=== PATIENT | female | born 1990 | race Caucasian/White ===

== ENCOUNTER 2024-05-11 14:25 | Inpatient (IN) | payer OTHER, SELFPAY ==
[2024-05-11] VITALS (92 sets, daily range): BP systolic 124–147; BP diastolic 56–92; PULSE 62–100; RESP 18; TEMP 36.6–36.9; O2SAT 85–100; BMI 48.9
[2024-05-11 15:06] LABS: ROM Kit Lot # 57804194; Swb Mxed in Solvent 1 min? Yes
[2024-05-11 15:07] LABS: ROM Swab Mixed By: OSEGA; Rupture of Fetal Membranes Positive (Negative)
--- NOTE | 2024-05-11 15:15 | XR_ITS ---
Examination: age Limited TECHNIQUE: Transabdominal limited sonographic images pelvis Exam date and time: May 11, 2024 1544 hours INDICATIONS: Ruptured membranes today, unknown presentation FINDINGS: Viable intrauterine gestation cephalic presentation spine maternal right Cardiac motion 171 bpm IMPRESSION: Viable intrauterine gestation cephalic presentation
[2024-05-11 18:03] LABS: Basophils % (Auto) 0 % (0-2.5); Eosinophils # (Auto) 0.1 Thou/mm3 (0.0-0.5); Eosinophils % (Auto) 1 % (0-10); Hematocrit 33.4 % (36.0-46.0); Immature Granulocytes % (Auto) 0 % (0-0); Immature Granulocytes Auto 0.04 Thou/mm3 (0.00-0.00); Lymphocytes # (Auto) 1.5 Thou/mm3 (1.0-4.8); Lymphocytes % (Auto) 16 % (10-50); Mean Corpuscular HGB Conc 32.9 g/dl (31.0-37.0); Mean Corpuscular Hemoglobin 27.9 pg (25.0-35.0); Mean Corpuscular Volume 85 fL (80-100); Monocytes # (Auto) 0.5 Thou/mm3 (0.0-0.8); Monocytes % (Auto) 6 % (0-12); Neutrophils # (Auto) 7.4 Thou/mm3 (1.8-7.7); Neutrophils % (Auto) 77 % (37-80); Nucleated Red Blood Cell % 0 /100 WBC (0); Platelet Count 229 Thou/mm3 (140-440); RDW Standard Deviation 47.8 fL (36.4-46.3); Red Blood Count 3.94 Miln/mm3 (4.00-5.20); White Blood Count 9.6 Thou/mm3 (3.6-11.0)
--- NOTE | 2024-05-11 18:11 | PD.LDHP ---
Documentation for date of: 05/11/24 OB Labor/Induct. HPI History of Present Illness Chief complaint: 33 y/o 37w 6d presents for SROM and in early labor : 1 Para: 0 Term pregnancies: 0 pregnancies: 0 Living children: 0 History of Abortions: Spontaneous and Elective: 0 History of Vaginal deliveries: 0 History of sections: No History of : No Date of last menstrual period: 08/20/23 [place]: 05/26/24 Gestational Age (weeks): 37 Gestational Age (days): 6 Gestational age based on last menstrual period: 37 History of present illness: 33 y/o 37w 6d presents for SROM and in early labor /-3 vertex ruptured membranes. GBS is neg. Pt's has been complicated by BMI of 47 and anemia. EFW 3400g History of Present Dating criteria: LMP confirmed by 2nd trimester US Adequate Care: Yes Ultrasounds: normal 1st trimester US and normal mid trimester US Obstetrical complications: other (Morbid Obesity BMI 47) Labs Maternal Blood Type: B Pos Labs: Positive: Rubella Titre, Negative: RPR, Hepatitis B, HIV, Chlamydia, Gonorrhea and Group Beta Strep and Unknown: Herpes Type 1, Herpes Type 2 and Covid-19 Review of Systems Review of Systems Systems Reviewed: All systems reviewed, normal except as documented Past Medical History Surgical History SURGICAL: Negative Section Meds Home Medications and Allergies Home Medications ?Medication ?Instructions ?Recorded ?Confirmed ?Type ferrous sulfate 15 mg iron (75 15 mg PO DAILY 05/11/24 05/11/24 History mg)/mL oral drops [id number]-[id number]-FA 1 mg 2 tab PO DAILY 05/11/24 05/11/24 History tablet Allergies Allergy/AdvReac Type Severity Reaction Status Date / Time povidone-iodine Allergy Mild Rash Verified 05/11/24 17:34 [From Betadine] honey Allergy Anaphylaxis Verified 05/11/24 17:55 venom-honey bee Allergy Anaphylaxis Verified 05/11/24 17:55 venom-wasp Allergy Anaphylaxis Verified 05/11/24 17:55 OB Exam Physical Exam Vital signs: Temp Pulse Resp BP Pulse Ox 97.9 F 82 18 132/78 H 100 05/11/24 16:42 05/11/24 16:42 05/11/24 16:42 05/11/24 16:42 05/11/24 18:07 Constitutional Constitutional: no acute distress Routine HEENT Exam Head: Present normocephalic and atraumatic Eye: Present EOMI, PERRL and normal accommodation ENT: Present mucous membranes moist Routine Neck Exam Neck: Present supple, full ROM and trachea midline Routine Respiratory Exam Respiratory: Absent respiratory distress Routine Cardiovascular Exam Cardiovascular: Present RRR Routine Abdominal Exam Abdominal: Present soft and normoactive bowel sounds Comments: Gravid Uterus EFW 3400g Routine Exam External: Present normal urethra appearance; Absent lesions Detailed Labor and Delivery Exam Dilation (cm): 3 Effacement (%): 50 Cervix position: posterior station: -3 Consistency: soft Presentation: Vertex Membranes: ruptured Amniotic fluid: clear Baseline heart rate: 130 monitor accelerations: 15x15 monitor decelerations: None detention variability: Moderate (11-25) Contraction frequency (min): 4-6 Routine Extremities Exam Extremities: Present full ROM Routine Back/Spine/Pelvis Exam Back/Spine: Present full ROM Routine Skin Exam Skin: Present intact, dry and warm Routine Neurological Exam Neurological: Present alert, oriented X3 and CN II-XII intact Routine Psychiatric Exam Psychiatric: Present normal affect and normal thought process OB Results Labs 05/11/24 16:41 Labs: Short CBC 05/11/24 Range/Units 16:41 WBC 9.6 (3.6-11.0) Thou/mm3 Hgb 11.0 L (12.0-16.0) g/dL Hct 33.4 L (36.0-46.0) % Plt Count 229 (140-440) Thou/mm3 OB Assessment & Plan Assessment and Plan (1) Premature rupture of membranes: Status: Acute (2) 37 weeks gestation of : Status: Acute (3) Normal labor: Status: Acute (4) Morbid obesity with BMI of 45.0-49.9, adult: Status: Acute (5) Anemia affecting in third trimester: Status: Acute Additional Plan Induction method: none Plan: augmentation, anticipate NVD and consult MD merritt Additional Plan Comment: Routine admit orders Consult anesthesia for an epidural Updated myles (1) Premature rupture of membranes Qualifiers: PROM onset of labor timing: unspecified duration between rupture of membranes and onset of labor PROM gestational age: full term Qualified Code(s): O42.92 - Full-term premature rupture of membranes, unspecified as to length of time between rupture and onset of labor
[2024-05-11 18:14] LABS: Amphetamine/Metham Scrn,Ur OB Negative (Negative); Benzoylecgonine Screen, Ur OB Negative (Negative); Opiate Screen,Urine OB Negative (Negative); THC Screen,Urine OB Negative (Negative)
[2024-05-11 18:36] LABS: Rubella, IgG Antibody Reactive (Immune)
[2024-05-11 18:45] LABS: Syphilis Nonreactive (Nonreactive)
--- NOTE | 2024-05-11 18:49 | XR_ITS ---
Examination: age Limited Technique: Limited transabdominal sonographic images pelvis Exam date and time: May 11, 2024 1904 hrs. Indications: Labor evaluation, unknown estimated weight Findings: Viable intrauterine gestation cephalic presentation Estimated weight 3314 g Cardiac motion 150 bpm Amniotic fluid index 2.6 cm Impression: Viable intrauterine gestation cephalic presentation
[2024-05-11] MEDS: MISOPROSTOL 50 mCg TABLET PO (21:46)
--- NOTE | 2024-05-11 22:32 | PC.NURSE ---
Cytotec order discontinued due to only 1 dose ordered.
[2024-05-11] MEDS: RINGERS LACTATED 1000 ML 1,000 ML 999 ML IV (22:55)
[2024-05-12] VITALS (380 sets, daily range): BP systolic 81–148; BP diastolic 49–85; PULSE 61–109; RESP 17–18; TEMP 36.9–37.4; O2SAT 77–100
[2024-05-12] MEDS: RINGERS LACTATED 1000 ML 1,000 ML 999 ML IV (00:11)
[2024-05-12] MEDS: RINGERS LACTATED 1000 ML 1,000 ML 100 ML IV ×4 (01:27→14:21)
--- NOTE | 2024-05-12 06:49 | PD.LDPN ---
Documentation for date of: 05/12/24 OB Labor Progress Note Pain Control Pain control: epidural Comments: Pt reports no comfort pain 01/16 Pelvic Exam Dilation (cm): 4 Effacement (%): 70 station: -2 Amniotic membrane status: Ruptured Contractions Monitor mode: External Contraction frequency: 2-3 Contraction duration: 40-50 Contraction phase: Contraction Contraction intensity: Strong Status status: Category l Assessment and Plan Assessment: other (Latent labor) Plan OB labor note: begin Pitocin augmentation Comments: Pt is very uncomfortable even with the epidural, will call anesthesia to reevaluate epidural placement Pt has made some cervical change Will start pitocin per protocol Anticipate
[2024-05-12] MEDS: OXYTOCIN in NS 30 units 30 UNIT/500 ML BAG IV (10:02)
[2024-05-12] MEDS: Ampicillin Inj 2,000 MG in SODIUM CHLORIDE 0.9% (P) 100 ML 200 MG IV (14:46)
[2024-05-12] MEDS: fentaNYL CIT INJ 50 mCg/ML AMP 2ML 100 MCG IV (15:49)
[2024-05-12] MEDS: ONDANSETRON INJ 2 MG/ML INJ 2 ML 4 MG (19:49)
--- NOTE | 2024-05-12 20:06 | PD.LDPN ---
Documentation for date of: 05/12/24 OB Labor Progress Note Pain Control Pain control: epidural Pelvic Exam Dilation (cm): 10 Effacement (%): 100 station: +1 Amniotic membrane status: Ruptured Contractions Monitor mode: External Contraction frequency: 2-5 Contraction duration: 40-60 Contraction phase: Contraction Contraction intensity: Strong Status status: Category l Assessment and Plan Pitocin rate (mU/min): 2 Assessment: other (2nd stage ) Plan OB labor note: continuous present management Comments: Test pushed with pt. Pt was able to move the head slowly but surely RN will push with pt CNM on unit awaiting for delivery Anticipate Dr. Khoury updated
[2024-05-12] MEDS: OXYTOCIN in NS 20 units 20 UNIT/1,000 ML BAG 125 UNIT IV (21:02)
[2024-05-12] MEDS: OXYTOCIN INJ 10 UNIT/ML VIAL IM (21:03)
[2024-05-12] MEDS: TRANEXAMIC ACID 1,000 MG IVPB 1,000 MG/100 ML BAG 200 MG IV ×2 (21:07→22:30)
--- NOTE | 2024-05-12 21:30 | OBDSUM_ITS ---
Data (Abbott) Data Hx Section: No Maternal Blood Type: B Pos Rubella Titre: Positive RPR: Non-reactive Labs: Negative: RPR, Hepatitis B, HIV, Chlamydia, Gonorrhea and Group Beta Strep and Unknown: Herpes Type 1 and Herpes Type 2 : 1 Para: 0 Term: 0 : 0 Livin : 0 Delivery Data (Abbott) Labor Data Stimulated/Augmented: Yes Induction: No Method: Oxytocin ROM Date: 05/11/24 ROM Time: 12:30 Rupture Type: SROM Amniotic Fluid: Clear Delivery Data EDC: 05/26/24 EDC calculated by:: LMP/early US confirmation Labor Onset Stage 1 Date: 05/11/24 Labor Onset Stage 1 Time: 12:30 Labor Onset Stage 2 Date: 05/12/24 Labor Onset Stage 2 Time: 19:32 Delivery Date: 05/12/24 Delivery Time: 20:47 Gestational age (weeks): 38 Gestational age (days): 1 Placenta Delivery Date: 05/12/24 Placenta Delivery Time: 21:02 Delivered by: Wanda Santos Delivery nurse: Zaynab Coyle Social Service Manager at delivery: No Support person(s) at delivery: FOB Other staff at delivery: Nursery Nurse Other staff at delivery: Ailyn Bardales Delivery Method Delivery: Vaginal Delivery Type: Spontaneous Presentation: Vertex Position: OA Anesthesia Type Primary Anesthesia: Epidural Delivery Room Medications Intrapartum Medications: Antibiotics Other Intrapartum Medications: No Post Delivery Medications: Antibiotics Post Delivery Medications N/A: Yes Placenta Placenta Delivery: Spontaneous Placenta Cultures Obtained: No Placenta Sent for Examination: No Cord Sample: Cord Blood Obtained Episiotomy Episiotomy: None Lacerations #1: Vaginal: 1st degree Perineal repair Sutures used for repair: 3.0 Vicryl (CT) EBL Estimated blood loss (ml): 300 Umbilical Cord Umbilical Vessels: 3 Nuchal Cord: x2 Body Cord: None Additional Procedures Patient pushed for an hour and had an of a viable male infant. 's head delivered with nuchal cord x 2 easily reduced. 's anterior shoulder delivered with gentle downward traction subsequent deliver the posterior shoulder and the body without complications. placed on mother's abdomen. Vigorous cry upon delivery. Cord was clamped. Cut by FOB. Cord blood obtained. Three-vessel cord noted. Placenta expelled spontaneously and intact. Patient sustained a small laceration within the vagina. Repaired using a 3-[address] Perineum intact. Excellent hemostasis achieved after vigorous fundal massage and removal of clots from the posterior fornix. EBL is 300. Sponge and needle count correct. Mother and baby stable, skin to skin and bonding in LDR. Data ([facility]bbott) Data Gender: Male Identification Band Number: [id number] Infant Weight Grams: 3275 1 Minute Total: 9 5 Minute Total: 9
[2024-05-12] MEDS: IBUPROFEN TAB 400 MG TABLET 800 MG PO (21:58)
[2024-05-13 00:30] VITALS: BP 122/76; PULSE 80; RESP 18; TEMP 36.8; O2SAT 98
[2024-05-13] MEDS: Ampicillin Inj 2,000 MG in SODIUM CHLORIDE 0.9% (P) 100 ML 200 MG IV ×3 (00:32→11:49)
[2024-05-13 03:54] LABS: Basophils % (Auto) 0 % (0-2.5); Eosinophils # (Auto) 0.1 Thou/mm3 (0.0-0.5); Eosinophils % (Auto) 0 % (0-10); Hematocrit 31.4 % (36.0-46.0); Hemoglobin 10.3 g/dL (12.0-16.0); Immature Granulocytes % (Auto) 0 % (0-0); Immature Granulocytes Auto 0.06 Thou/mm3 (0.00-0.00); Lymphocytes % (Auto) 15 % (10-50); Mean Corpuscular HGB Conc 32.8 g/dl (31.0-37.0); Mean Corpuscular Hemoglobin 28.1 pg (25.0-35.0); Mean Corpuscular Volume 86 fL (80-100); Monocytes # (Auto) 1.1 Thou/mm3 (0.0-0.8); Monocytes % (Auto) 8 % (0-12); Neutrophils # (Auto) 10.5 Thou/mm3 (1.8-7.7); Neutrophils % (Auto) 77 % (37-80); Nucleated Red Blood Cell % 0 /100 WBC (0); Platelet Count 203 Thou/mm3 (140-440); Red Blood Count 3.67 Miln/mm3 (4.00-5.20); White Blood Count 13.7 Thou/mm3 (3.6-11.0)
[2024-05-13 04:54] VITALS: BP 97/62; PULSE 84; RESP 18; TEMP 36.7; O2SAT 98
[2024-05-13 08:00] VITALS: BP 109/69; PULSE 92; RESP 17; TEMP 36.3; O2SAT 98
--- NOTE | 2024-05-13 08:22 | PD.LDDS ---
DS: Providers Provider Date of admission: 05/11/24 15:13 Primary care physician: Physician No Primary/Family Admitting Provider: Delio Robison MD Attending Provider on Admission: Wanda Santos CNM Attending Provider on DC: Wanda Santos CNM Discharging Provider: Wanda Santos CNM Anticipated date of discharge: 05/13/24 DS: Diagnosis Discharge Diagnosis (1) Normal spontaneous vaginal delivery: Status: Acute (2) Encounter for care of lactating mother: Status: Acute (3) Anemia affecting in third trimester: Status: Acute (4) Morbid obesity with BMI of 45.0-49.9, adult: Status: Acute (5) Normal labor: Status: Acute (6) 37 weeks gestation of : Status: Acute (7) Premature rupture of membranes: Status: Acute Problem List Completed Was Problem List Reviewed/Reconciled?: Yes Summary/Hosp Course Brief History: 33 y/o 37w 6d presents for SROM and in early labor /-3 vertex ruptured membranes. GBS is neg. Pt's has been complicated by BMI of 47 and anemia. EFW 3400g. 05/12/24: Patient pushed for an hour and had an of a viable male . 's head delivered with nuchal cord x 2 easily reduced. 's anterior shoulder delivered with gentle downward traction subsequent deliver the posterior shoulder and the body without complications. placed on mother's abdomen. Vigorous cry upon delivery. Cord was clamped. Cut by FOB. Cord blood obtained. Three-vessel cord noted. Placenta expelled spontaneously and intact. Patient sustained a small laceration within the vagina. Repaired using a 3-[address] Perineum intact. Excellent hemostasis achieved after vigorous fundal massage and removal of clots from the posterior fornix. EBL is 300. Sponge and needle count correct. Mother and baby stable, skin to skin and bonding in LDR. 05/13/24: day 1. Patient is stable and afebrile and doing well and . Denies dizziness shortness of breath. Patient has been voiding with no problems ambulating to the bathroom. Passing gas. Uterus is nontender fundus firm minimal lochia. Discharge instructions given patient to follow-up with Wanda Santos CNM in 3 weeks Peripartum Data Delivery Method: Normal Vaginal Delivery Episiotomy Description: None Laceration Description: yes and see Delivery Summary complications: none 1: Gender: Male Disposition of : home Status at Discharge Cognitive/behavioral status at discharge: Alert and oriented x 3 Functional status at discharge: independent ambulation Overall status at discharge: patient is progressing back to baseline Time Spent with Patient Time attestation: Total time spent providing and/or coordinating discharge services: Time spent: Greater than 30 minutes Exam Vital Signs Temp Pulse Resp BP Pulse Ox 98.4 F 74 18 120/66 100 05/12/24 11:30 05/12/24 20:24 05/12/24 11:30 05/12/24 20:24 05/12/24 21:15 Constitutional Constitutional: no acute distress Routine HEENT Exam Head: Present normocephalic and atraumatic Eye: Present EOMI, PERRL and normal accommodation ENT: Present mucous membranes moist Routine Neck Exam Neck: Present supple, full ROM and trachea midline Routine Respiratory Exam Respiratory: Present chest non-tender, lungs clear, normal breath sounds and no resp distress Routine Cardiovascular Exam Cardiovascular: Present RRR Routine Abdominal Exam Abdominal: Present soft and normoactive bowel sounds; Absent tenderness or distended Comments: Uterus nontender Fundus firm Routine Exam Patient deferred: external exam Routine Extremities Exam Extremities: Present full ROM, pulses intact and normal capillary refill; Absent calf tenderness or tenderness Routine Back/Spine/Pelvis Exam Back/Spine: Present full ROM Routine Skin Exam Skin: Present intact, dry and warm Routine Neurological Exam Neurological: Present alert, oriented X3 and CN II-XII intact Routine Psychiatric Exam Psychiatric: Present normal affect and normal thought process Discharge Plan Plan Patient Disposition: HOME (Self Care) Patient condition on transfer: Stable Prescriptions/Referrals Prescriptions/Med Rec: New ibuprofen 800 mg tablet 800 mg PO Q6H MDD 4 PRN (Reason: pain) Qty: 120 0RF docusate sodium [Colace] 100 mg capsule 100 mg PO BID Qty: 60 0RF lanolin 50 % ointment 1 applic topical TID PRN (Reason: skin irritation) Qty: 15 0RF Continued ferrous sulfate 15 mg iron (75 mg)/mL Drops 15 mg PO DAILY [id number]-[id number]-FA 1 mg Tablet 2 tab PO DAILY Referrals: No Primary/Family,Physician [Primary Care Provider] - Patient/Caregiver Discharge Instructions Meds to Beds: No Discharge Activity: activity as tolerated Other Discharge Activity Instructions:: Follow-up with Wanda Santos CNM in 3 weeks Education Materials: After a Vaginal , How to Breastfeed, : Caring for Yourself Print Language: Croatian Stand Alone Forms: Savita Award Info., Patient Portal Info Letter Discharge Order Discharge Orders: Discharge (Routine); Ordered 05/13/24 Ordered By: Wanda Santos Planned Discharge Date 05/13/24 (7) Premature rupture of membranes Qualifiers: PROM gestational age: full term PROM onset of labor timing: unspecified duration between rupture of membranes and onset of labor Qualified Code(s): O42.92 - Full-term premature rupture of membranes, unspecified as to length of time between rupture and onset of labor
--- NOTE | 2024-05-13 10:45 | PC.SS ---
HORSE EXERCISER conducted bedside contact with the patient to address nursing referral indicating patient was late to care. HORSE EXERCISER introduced self, role and basis of contact. Patient confirmed with HORSE EXERCISER late to care for OB services. Patient stated barrier with insurance change. Patient transitioned to new job, insurance was not activated prior to late to care deadline. Once insurance established patient accessed OB services with Dr. Gary. , Abilio; is the patient?s first child. FOB, Lucho Flores; will be involved with the rearing of the . Cameron delivered naturally. Patient will be breast feeding the infant. Patient is not accessing SNAP, WIC or TANF. Patient denies history of alcohol/drug abuse. Patient denies CWS intervention. Patient denies episodes of domestic violence. Patient denies possessing a history of mental health, reports no current possession of depression or anxiety. Patient has access to appropriate supplies and equipment; to include a car seat. FOB will provide transportation upon discharge. Patient describes possessing support system consisting of FOB and extended family. HORSE EXERCISER provided the patient with community resources to include Parenting Network and Warm Line. No further intervention required at this time, social human services assistants will be available to address any further concerns. HORSE EXERCISER updated bedside nurse.
[2024-05-13 11:50] VITALS: BP 107/69; PULSE 91; RESP 16; TEMP 36.8
[2024-05-13 16:02] VITALS: BP 117/73; PULSE 94; RESP 16; TEMP 36.9
[2024-05-13 20:30] VITALS: BP 110/70; PULSE 76; RESP 20; TEMP 36.7
== END 2024-05-13 23:32 | disposition home or self-care (01) | DRG 807 ==
LOC: S4SX 05-12 21:30 → S4NX 05-12 23:45
PROVIDERS: Admitting Provider Obstetrics & Gynecology; Visit Provider Nurse Practitioner Women's Health
DX: O99.214 Obesity complicating childbirth (principal); Z37.0 Single live birth; E66.01 Morbid (severe) obesity due to excess calories; O99.02 Anemia complicating childbirth; Z3A.37 37 weeks gestation of pregnancy; O70.0 First degree perineal laceration during delivery; O69.81X0 Labor and delivery complicated by cord around neck, without compression, not applicable or unspecified
CPT/HCPCS: 36415; 59025; 59409; 76815; 80307; 84112; 85025; 86762; 86780; 86850; 86900; 86901; J0290; J2405; J2590; J2795; J3010; J3490; J7120; A9270

== ENCOUNTER 2024-12-04 12:02 | Emergency (ER) | payer OTHER, SELFPAY ==
[2024-12-04 12:03] VITALS: BMI 45.1
--- NOTE | 2024-12-04 13:11 | XR_ITS ---
Examination: Abdomen sonogram, Limited Date and time of exam: December 04, 2024, 1342 hrs. Indications: Epigastric pain and 4 days ago Technique: Real-time gilmore scale transabdominal sonographic images of the upper abdomen obtained. Findings: Cholelithiasis, normal gallbladder wall Normal common bile duct 0.4 cm Pancreatic head 2.7 cm Liver 17.6 cm fatty infiltration no focal liver lesions Normal hepatopedal portal venous flow Patent IVC Impression: Cholelithiasis, negative for cholecystitis
--- NOTE | 2024-12-04 13:12 | PD.EDRME ---
Rapid Medical Screening Exam RME Arrival date/time: 12/04/24 12:02 This is a 34-year-old female that comes into the emergency room with complaints of epigastric pain that started 5 days ago. Patient states she has not been able to keep anything down. Patient has vomiting. Patient denies any diarrhea. Patient denies fever chills. I have greeted and performed a focused initial assessment of this patient. Initial appropriate labs ordered at this time. A comprehensive ED assessment and evaluation of the patient and analysis of all test and completion of medical decision making process will be conducted by additional ED provider. Chief Complaint: Abdominal Pain Time Seen by Provider: 12/04/24 12:29
[2024-12-04 13:13] VITALS: BP 123/82; PULSE 83; RESP 18; TEMP 37.4; O2SAT 99
[2024-12-04 13:25] LABS: Collection Type, Urine Voided; WBC,Urine 0 /hpf (0-5)
[2024-12-04 13:46] LABS: Basophils % (Auto) 0 % (0-2.5); Eosinophils # (Auto) 0.1 Thou/mm3 (0.0-0.5); Eosinophils % (Auto) 1 % (0-10); Hematocrit 39.8 % (36.0-46.0); Hemoglobin 13.4 g/dL (12.0-16.0); Immature Granulocytes % (Auto) 0 % (0-0); Immature Granulocytes Auto 0.02 Thou/mm3 (0.00-0.00); Lymphocytes # (Auto) 1.7 Thou/mm3 (1.0-4.8); Lymphocytes % (Auto) 19 % (10-50); Mean Corpuscular HGB Conc 33.7 g/dl (31.0-37.0); Mean Corpuscular Hemoglobin 28.1 pg (25.0-35.0); Mean Corpuscular Volume 83 fL (80-100); Monocytes # (Auto) 0.5 Thou/mm3 (0.0-0.8); Monocytes % (Auto) 6 % (0-12); Neutrophils # (Auto) 6.8 Thou/mm3 (1.8-7.7); Neutrophils % (Auto) 74 % (37-80); Nucleated Red Blood Cell % 0 /100 WBC (0); Platelet Count 277 Thou/mm3 (140-440); RDW Standard Deviation 41.3 fL (36.4-46.3); Red Blood Count 4.77 Miln/mm3 (4.00-5.20); White Blood Count 9.2 Thou/mm3 (3.6-11.0)
[2024-12-04 13:57] LABS: HCG Qualitative,Urine Negative
[2024-12-04 13:57] LABS: Alanine Aminotransferase 157 U/L (10-49); Albumin, Serum 4.8 gm/dL (3.5-5.0); Albumin/Globulin Ratio 1.5 (1.2-2.2); Alkaline Phosphatase 140 U/L (46-116); Anion Gap 6 (7-16); Aspartate Amino Transferase 166 U/L (0-34); BUN/Creatinine Ratio 7 Ratio (12-20); Bilirubin,Total 1.6 mg/dL (0.3-1.2); Blood Urea Nitrogen 7 mg/dL (9-23); Calcium 9.4 mg/dL (8.3-10.6); Calcium (Corrected) 9.4 mg/dL (8.5-10.1); Carbon Dioxide 27.1 mMol/L (20.0-31.0); Chloride 109 mMol/L (98-107); Estimated Creatinine Clearance 109.1 mL/min (>60); Globulin 3.3 gm/dL (2.3-3.5); Glucose 91 mg/dL (74-106); Lipase 44 U/L (12-53); Osmolality,Calculated 281 (275-295); Potassium 3.8 mMol/L (3.4-5.1); Sodium 142 mMol/L (136-145); Total Protein 8.1 gm/dL (5.7-8.2); eGFR > 60 See Note
[2024-12-04 13:59] LABS: Bacteria,Urine 1+; Bilirubin,Urine Negative (Negative); Blood,Urine Negative (Negative); Clarity,Urine Clear (Clear/Hazy); Color,Urine Yellow (Lt Yel-Yel); Glucose, Urine Negative (Negative); Ketones,Urine Negative (Negative); Leukocyte Esterase,Urine Negative (Negative); Nitrite,Urine Negative (Negative); PH,Urine 6.5 (5.0-7.0); Protein,Urine Trace (Neg - Trace); RBC,Urine 4 /hpf (0-3); Specific Gravity,Urine 1.024 (1.001-1.035); Squamous Epithelial Cell,Urine 1 /hpf (0-5)
[2024-12-04 14:04] LABS: Culture Indicated,Urine Yes
--- NOTE | 2024-12-04 15:55 | PD.EDABDPN ---
ED Abdominal Pain RME/HPI General Chief Complaint: Abdominal Pain Stated complaint: EPIGASTRIC PAIN FOR 5 DAYS WITH VOMITING Time seen by provider: 12/04/24 12:29 Arrival date/time: 12/04/24 12:02 RME / HPI RME / HPI narrative: 34-year-old female that comes into the emergency room with complaints of epigastric pain that started 5 days ago. Pain described as dull ache, severity 5 out of 10. Patient states she has not been able to keep anything down. Patient has vomiting. Patient denies any diarrhea. Patient denies fever chills. Related Data Home Medications ?Medication ?Instructions ?Recorded ?Confirmed ferrous sulfate 15 mg iron (75 15 mg PO DAILY 05/11/24 05/11/24 mg)/mL oral drops [id number] 1 mg 2 tab PO DAILY 05/11/24 05/11/24 tablet Previous Rx's ?Medication ?Instructions ?Recorded docusate sodium 100 mg capsule 100 mg PO BID #60 caps 05/12/24 (Colace) ibuprofen 800 mg tablet 800 mg PO Q6H PRN pain #120 tabs 05/12/24 lanolin 50 % topical ointment 1 applic topical TID PRN skin 05/12/24 irritation #15 tubes dicyclomine 20 mg tablet 20 mg PO QID PRN abdominal pain 12/04/24 #30 tabs metoclopramide HCl 10 mg tablet 10 mg PO Q6H PRN nausea and 12/04/24 (Reglan) vomiting #20 tabs pantoprazole 40 mg tablet,delayed 40 mg PO QDAY #10 tabs 12/04/24 release (Protonix) Allergies Allergy/AdvReac Type Severity Reaction Status Date / Time honey Allergy Severe Anaphylaxis Verified 12/04/24 12:05 povidone-iodine (From Allergy Severe Hives Verified 12/04/24 12:05 Betadine) venom-honey bee Allergy Severe Anaphylaxis Verified 12/04/24 12:05 venom-wasp Allergy Severe Anaphylaxis Verified 12/04/24 12:05 Review of Systems Review of Systems Narrative Review of Systems: Review of system reviewed and within normal limits except mentioned in HPI ED Exam Narrative Physical exam: VITAL SIGNS: Reviewed. GENERAL APPEARANCE: Alert and interactive, follows commands, no acute distress, HEAD AND FACE: Non-traumatic. ENT: PERRL, pink conjunctivitis, eyelid no trauma, Mucous membrane moist. NECK: Supple, nontender, no nuchal rigidity. CHEST: No tenderness, no crepitus, no paradoxical movement, no retractions. LUNGS: Clear, well ventilated, symmetric, no rales, no wheezing, no ronchi, no stridor, good breath sounds bilaterally. HEART: Regular rate, regular rhythm, no murmur, no gallops. ABDOMEN: Soft, positive bowel sounds, nondistended, no guarding, epigastric tenderness,, no rebound, no masses, RECTAL: Deferred. GENITAL: Deferred. NEUROLOGICAL: Gross motor function intact sensory function intact, Appropriate for age. MUSCULOSKELETAL: low back nontender, full range of motion. EXTREMITIES: Nontender, full range of motion. SKIN: Color pink, dry, no rash, no lacerations, no abrasions, no contusions. LYMPHATICS: Deferred. Course Quality Measures none Orders Category Date Time Status EKG (ED ONLY) *Do not use* NOW Care 12/04/24 15:18 Active EKG (ED Only) Stat Exams 12/04/24 15:18 Stop Req MR MRCP Stat Exams 12/04/24 Stop Req US abdomen limited Stat Exams 12/04/24 13:11 Completed CBC Stat Lab 12/04/24 13:20 Completed Comprehensive Metabolic Panel Stat Lab 12/04/24 13:20 Completed HCG Qualitative,Urine Stat Lab 12/04/24 13:15 Completed Lipase Stat Lab 12/04/24 13:20 Completed Urinalysis, C/S if Indicated Stat Lab 12/04/24 13:15 Completed Urine Culture Stat Lab 12/04/24 13:15 Received Famotidine [Pepcid] Med 12/04/24 15:54 Discontinued 40 mg PO X1 ONE Ketorolac Inj [Toradol Inj] Med 12/04/24 15:54 Discontinued 30 mg IM X1 ONE Ondansetron Odt [Zofran Odt] Med 12/04/24 15:54 Discontinued 4 mg PO X1 ONE Vital Signs Vital signs: Vital Signs Temperature 99.3 F 12/04/24 13:13 Pulse Rate 83 12/04/24 13:13 Respiratory Rate 18 12/04/24 13:13 Blood Pressure 123/82 12/04/24 13:13 Pulse Oximetry (%) 99 12/04/24 13:13 Oxygen Delivery Method Room Air 12/04/24 13:13 Abdominal Pain [facility] Narrative [facility] Narrative:: 34-year-old female that comes into the emergency room with complaints of epigastric pain that started 5 days ago. Pain described as dull ache, severity 5 out of 10. Patient states she has not been able to keep anything down. Patient has vomiting. Patient denies any diarrhea. Patient denies fever chills. Patient's laboratory workup showed no leukocytosis however her total bili is slightly elevated 1.6 AST is 166 ALT 157 alkaline phos 140. Lipase normal. Results discussed with the patient. Including ultrasound that showed cholelithiasis with no sign of acute cholecystitis. Patient received Toradol, Pepcid, and Zofran with complete resolution of symptoms. Patient was advised to return to emergency room for worsening of symptoms, for possible MRCP probably Friday will have MR LIRA at this time and tomorrow. Patient agrees with the plan. Patient data External records reviewed:: None Clinical information provided by:: patient and family Social determinants that could affect healthcare access:: none Patient has the following chronic illnesses:: None How is presenting disease/condition affected by chronic disease/condition?: no chronic disease Evaluation data The following diagnostics were reviewed and interpreted by me:: lab results and radiology exam(s) Lab and/or radiology exams considered but not ordered:: None Interpretation Summary: See results [facility] Medications / Prescriptions Medications or Prescriptions considered but not ordered:: None Medication administrations:: Medication Administration History Discontinued Medications Famotidine (Famotidine 20 Mg Tablet) 40 mg PO X1 ONE Stop: 12/04/24 15:55 Last Admin: 12/04/24 16:21 Dose: 40 mg Documented By: Ketorolac Tromethamine (Ketorolac Inj 60 Mg/2 Ml Vial) 30 mg IM X1 ONE Stop: 12/04/24 15:55 Last Admin: 12/04/24 16:22 Dose: 30 mg Documented By: Ondansetron HCl (Ondansetron Odt 4 Mg Tabrap) 4 mg PO X1 ONE; Protocol Stop: 12/04/24 15:55 Last Admin: 12/04/24 16:21 Dose: 4 mg Documented By: Zofran Toradol and Pepcid Consultations Consultation(s) initiated? (list below): No Diagnosis Differential diagnosis abdominal pain: abdominal pain, pancreatitis and other (Cholelithiasis) Most likely diagnosis given after review of the tests above:: Cholelithiasis Admission Indicated Admission indicated?: not indicated Admission Request Was there a request for admission?: No Disposition Plan Disposition Plan: Discharge Discharge Attestation Discharge Attestation: The patient and all family members were given an opportunity to ask questions and understood the discharge instructions. Discharge instructions specifically effects, indications for sooner follow up or return to the emergency department, and the expected course of current diagnosis. Patient condition: Stable Discharge Plan Plan Patient Disposition: HOME (Self Care) Discharge Disposition comment: Stable Prescriptions/Referrals Prescriptions/Med Rec: New dicyclomine 20 mg tablet 20 mg PO QID PRN (Reason: abdominal pain) Qty: 30 0RF metoclopramide HCl [Reglan] 10 mg tablet 10 mg PO Q6H PRN (Reason: nausea and vomiting) Qty: 20 0RF pantoprazole [Protonix] 40 mg tablet,delayed release (DR/EC) 40 mg PO QDAY Qty: 10 0RF No Action ferrous sulfate 15 mg iron (75 mg)/mL Drops 15 mg PO DAILY [id number] 1 mg Tablet 2 tab PO DAILY ibuprofen 800 mg tablet 800 mg PO Q6H MDD 4 PRN (Reason: pain) Qty: 120 0RF docusate sodium [Colace] 100 mg capsule 100 mg PO BID Qty: 60 0RF lanolin 50 % ointment 1 applic topical TID PRN (Reason: skin irritation) Qty: 15 0RF Referrals: IZZY VENCES [Primary Care Provider] - In 1 week Problem List Clinical Impression: Abdominal pain, Cholelithiasis Patient/Caregiver Discharge Instructions Discharge Activity: activity as tolerated Education Materials: ED Gallstones with Biliary Colic Additional Instructions: Thank you for the opportunity for serving you today. You are stable for discharged . You are advised to: Follow-up with your PCP in 1 to 2 days and asked for outpatient MRCP Return to ED for worsening of symptoms, fever, worsening abdominal pain, vomiting Increase oral fluids Take medication as prescribed Please avoid eating fatty, greasy food Please ask your PCP to refer you to a general surgeon Print Language: Mongolian Stand Alone Forms: Savita Award Info., Patient Portal Info Letter DIA/STIVEN Supervising Physician ABRAHAN Supervising Physician: Md Isaac
[2024-12-04 16:11] VITALS: BP 126/80; PULSE 74; RESP 16; TEMP 36.6; O2SAT 99
[2024-12-04] MEDS: FAMOTIDINE 20 MG TABLET 40 MG PO (16:21)
[2024-12-04] MEDS: ONDANSETRON ODT 4 MG TABRAP PO (16:21)
[2024-12-04] MEDS: KETOROLAC INJ 60 MG/2 ML VIAL 30 MG IM (16:22)
== END 2024-12-04 17:12 | disposition home or self-care (01) ==
PROVIDERS: Nurse Practitioner Family; Emergency Provider Emergency Medicine; PCP Nurse Practitioner Family
DX: K80.20 Calculus of gallbladder without cholecystitis without obstruction (principal)
CPT/HCPCS: 36415; 76705; 80053; 81001; 81025; 83690; 85025; 87086; 96372; 99284; J1885; Q0162; A9270

== ENCOUNTER 2024-12-17 11:00 | Day surgery (SDC) | payer OTHER, SELFPAY ==
[2024-12-16 06:29] VITALS: BMI 45.1
[2024-12-16 08:49] LABS: Basophils # (Auto) 0.0 Thou/mm3 (0.0-0.2); Basophils % (Auto) 1 % (0-2.5); Eosinophils # (Auto) 0.2 Thou/mm3 (0.0-0.5); Eosinophils % (Auto) 3 % (0-10); Hematocrit 39.4 % (36.0-46.0); Hemoglobin 12.9 g/dL (12.0-16.0); Immature Granulocytes Auto 0.01 Thou/mm3 (0.00-0.00); Lymphocytes # (Auto) 2.1 Thou/mm3 (1.0-4.8); Lymphocytes % (Auto) 27 % (10-50); Mean Corpuscular HGB Conc 32.7 g/dl (31.0-37.0); Mean Corpuscular Hemoglobin 28.2 pg (25.0-35.0); Mean Corpuscular Volume 86 fL (80-100); Monocytes # (Auto) 0.5 Thou/mm3 (0.0-0.8); Monocytes % (Auto) 6 % (0-12); Neutrophils # (Auto) 5.0 Thou/mm3 (1.8-7.7); Neutrophils % (Auto) 64 % (37-80); Nucleated Red Blood Cell # 0.00 Thou/mm3 (0.00-0.00); Nucleated Red Blood Cell % 0 /100 WBC (0); Platelet Count 257 Thou/mm3 (140-440); RDW Standard Deviation 41.6 fL (36.4-46.3); Red Blood Count 4.57 Miln/mm3 (4.00-5.20); White Blood Count 7.8 Thou/mm3 (3.6-11.0)
[2024-12-16 09:01] LABS: Alanine Aminotransferase 12 U/L (10-49); Albumin, Serum 4.5 gm/dL (3.5-5.0); Albumin/Globulin Ratio 1.5 (1.2-2.2); Alkaline Phosphatase 80 U/L (46-116); Anion Gap 10 (7-16); Aspartate Amino Transferase 14 U/L (0-34); BUN/Creatinine Ratio 9 Ratio (12-20); Beta HCG,Quantitative < 1 mIU/mL (<5.0); Bilirubin,Total 0.8 mg/dL (0.3-1.2); Blood Urea Nitrogen 8 mg/dL (9-23); Calcium 9.2 mg/dL (8.3-10.6); Calcium (Corrected) 9.2 mg/dL (8.5-10.1); Carbon Dioxide 27.1 mMol/L (20.0-31.0); Chloride 106 mMol/L (98-107); Creatinine (Component) 0.9 mg/dL (0.6-1.3); Estimated Creatinine Clearance 125.2 mL/min (>60); Globulin 3.0 gm/dL (2.3-3.5); Glucose 92 mg/dL (74-106); Osmolality,Calculated 283 (275-295); Potassium 4.3 mMol/L (3.4-5.1); Sodium 143 mMol/L (136-145); Total Protein 7.5 gm/dL (5.7-8.2); eGFR > 60 See Note
--- NOTE | 2024-12-16 14:52 | SUR.PREOP ---
Pt notified to come in at 1130 tomorrow for surgery.
[2024-12-17] VITALS (9 sets, daily range): BP systolic 100–136; BP diastolic 58–73; PULSE 76–93; RESP 13–20; TEMP 36.6–37; O2SAT 96–100; BMI 45.7
[2024-12-17] MEDS: RINGERS LACTATED 1000 ML 1,000 ML 20 ML IV (11:44)
--- NOTE | 2024-12-17 14:25 | PD.SUROPNT ---
Date of Procedure 12/17/24 Pre Op Diagnosis Symptomatic cholelithiasis Post Op Diagnosis Cholelithiasis with cholecystitis Procedure Laparoscopic cholecystectomy Findings Moderately distended gallbladder with gallstones and chronic cholecystitis Procedure Description Patient was brought into the operating room in supine position. After administration of general endotracheal anesthesia abdomen was prepped and draped in standard surgical manner. A Veress needle was inserted through the umbilicus and pneumoperitoneum was obtained up to 15 mmHg. The Veress needle was then removed, a 5 mm infraumbilical incision was made and the 5mm trocar was inserted. Laparoscopic camera was placed. Under direct visualization a laparoscopic camera a 10 mm trocar was placed in subxiphoid and two 5 mm trocars placed in right upper quadrant. The gallbladder was identified and was noted to be moderately distended with multiple gallstones and chronic cholecystitis. It was retracted cephalad and laterally. Dissection started near the infundibulum of gallbladder where cystic duct and gallbladder junction clearly identified. The cystic duct was circumferentially dissected off the peritoneum and surrounding inflammatory tissue. The critical view of safety was clearly demonstrated. Cystic duct was then divided between 2 endoclips proximally and one distally. The cystic artery was similarly dissected and divided. The gallbladder was then from the liver bed using electrocautery. The gallbladder was then placed inside an Endo Catch and removed from the abdomen utilizing subxiphoid trocar site. The area was copiously and thoroughly washed and irrigated, all the fluid was suctioned and the suction fluid returned clear. Hemostasis achieved using electrocautery. Endoclips noted be in place and intact without any bleeding or any leakage. Hemostasis was adequate and satisfactory. The subxiphoid trocar sites fascial defect was closed with 0 Vicryl using Endo Closure device. Instruments and trocars removed, pneumoperitoneum was evacuated and the incisions closed with 4-0 Monocryl in subcuticular fashion. Instrument needle and sponge counts were all reported to be correct X2. Patient tolerated the procedure well, was extubated, breathing spontaneously and without difficulty and was transferred to postanesthesia care in stable condition. Anesthesia GETA and local Pathology / specimen Other (Gallbladder and contents) Estimated Blood Loss 10 Condition Stable Disposition PACU Surgeon Ajith Galeas MD Surgical Staff Operation Date: 12/17/24 13:30 Case Staff MARKET PRESIDENT: Leonel Young RNpackage line relief operator: Jocelyne Reveles
--- NOTE | 2024-12-17 14:33 | SUR.PHASEI ---
1438 Patient arrived to recovery resting comfortably in [facility], drowsy and able to arouse with verbal prompting, on oxygen 8L via oxy mask, breathing unlabored, vital signs stable, dressing intact; no bleeding noted, denies nausea, report received from Leonel SCHULTE/ Yumiko KWAN and Lg DE SOUZA
[2024-12-17] MEDS: HYDROmorphone INJ 2 MG/ML VIAL 0.5 MG IVP ×2 (14:43→14:53)
[2024-12-17] MEDS: fentaNYL CIT INJ 50 mCg/ML AMP 2ML IVP (15:06)
--- NOTE | 2024-12-17 15:52 | SUR.PHASEI ---
1552 Patient meets discharge criteria from recovery, awake and alert, breathing unlabored, vital signs stable, per patient her pain is tolerable, dressing intact; no bleeding noted, drinking fluids; denies nausea, patient assisted with dressing into her clothing by her , discharge instructions given to patient and patients , signed discharge instructions. Patient given all her belongings prior to discharge, transported via wheelchair and left in a private vehicle.
== END 2024-12-17 15:52 | disposition home or self-care (01) ==
PROVIDERS: PCP Nurse Practitioner Family; Referring Provider Surgery; Visit Provider Surgery
PROC: 0FT44ZZ Resection of Gallbladder, Percutaneous Endoscopic Approach (ICD-10-PCS; CPT 47562; principal; 2024-12-17 13:15)
DX: K80.10 Calculus of gallbladder with chronic cholecystitis without obstruction (principal)
CPT/HCPCS: 47562; 36415; 80053; 84702; 85025; A4217; A4649; J0131; J0694; J1100; J1171; J1885; J2250; J2371; J2405; J2704; J3010; J3490; J7120; J1805